=== PATIENT | female | born 1985 | race Asian ===

== ENCOUNTER 2020-12-15 19:13 | Emergency (ER) | payer BC, OTHER ==
[~2020-12-15] VITALS: Ht 162.6 cm; Wt 52.6 kg
[2020-12-15 19:35] VITALS: BP_SYST 116
[2020-12-15] MEDS ORDERED: CEPH250C PO (22:30)
[2020-12-15] MEDS ORDERED: BACI15OI13 TP (22:30)
[2020-12-15] MEDS ORDERED: BACITRACIN 1 GM OINT TP ONE (22:58)
[2020-12-15 23:00] VITALS: BP_SYST 116
[2020-12-15] MEDS ORDERED: DIPH-TET-PERTUS Vaccine 0.5 ML VIAL (ADACEL) I.M. ONE (23:00)
[2020-12-15] MEDS ORDERED: BACITRACIN ZINC 15 GM TOPICAL OINTMENT TP ONE (23:00)
== END 2020-12-15 23:00 | disposition home or self-care (01) ==
LOC: SED 19:13
DX: S61.215A Laceration without foreign body of left ring finger without damage to nail, initial encounter (principal); Z79.899 Other long term (current) drug therapy; W45.8XXA Other foreign body or object entering through skin, initial encounter; Y93.89 Activity, other specified; Y92.89 Other specified places as the place of occurrence of the external cause; Y99.8 Other external cause status
CPT/HCPCS: 90715; 99283